=== PATIENT | female | born 1970 | race Caucasian/White ===

== ENCOUNTER → 2018-07-05 | Outpatient (CLI) | payer OTHER ==
--- NOTE | 2018-07-06 08:31 | RADIOLOGY IMAGING REPORT ---
FAC[facility]: [facility] PATIENT NAME: JASON MORRIS : [id number] MR: [id number] V: [id number] EXAM DATE: [id number] ORDERING PHYSICIAN: OSMANY NICOLE TECHNOLOGIST: Dominga Loza PROCEDURE:BILATERAL DIGITAL SCREENING MAMMOGRAM WITH CAD ASSISTED INTERPRETATION & 3D TOMOSYNTHESIS COMPARISON:Prior mammograms dated 05/04/17, 04/28/16, 03/26/15, 03/22/14, 03/20/13 INDICATIONS:SCREENING FINDINGS: There are bilateral subpectoral breast implants in place. There is no demonstration of implant rupture or leakage. The breasts are heterogeneously dense which can obscure small masses. The parenchymal pattern has remained stable allowing for difference in mammographic technique & patient positioning. There is no evidence of malignant appearing mass, malignant appearing calcification or other secondary sign of malignancy in either breast. DIAGNOSTIC CATEGORY 2--BENIGN FINDING. RECOMMENDATIONS: ROUTINE MAMMOGRAM AND CLINICAL EVALUATION. IMPRESSION: BIRADS 2: Benign finding. No significant abnormality is seen. Dictated by: Machelle Yip M.D. on 07/05/2018 at 10:26 Transcribed by: DOUGLAS on 07/05/2018 at 13:53 Approved by: Machelle Yip M.D. on 07/06/2018 at 8:30 [facility]
== END ==
LOC: MAMO 09:17
PROVIDERS: ATTEND Family Medicine
DX: Z12.31 Encounter for screening mammogram for malignant neoplasm of breast (principal); Z98.82 Breast implant status
CPT/HCPCS: 77063; 77067